=== PATIENT | male | born 1950 | race Caucasian/White ===

== ENCOUNTER → 2018-07-13 | Outpatient (CLI) | payer OTHER | LOC: BMCIMAGING 11:11 | PROVIDERS: ATTEND Neurological Surgery | DX: Z09 Encounter for follow-up examination after completed treatment for conditions other than malignant neoplasm (principal); Z98.1 Arthrodesis status; M46.92 Unspecified inflammatory spondylopathy, cervical region ==

== ENCOUNTER 2018-08-25 01:09 | Emergency (ER) | payer OTHER ==
[2018-08-25] MEDS ORDERED: LORazepam 1 MG TAB PO ONE (02:34)
--- NOTE | 2018-08-25 02:49 | EDPHY ---
H & P Stated Complaint: SHAKING ANXIETY Time Seen by Provider: 08/25/18 01:38 HPI/ROS: Chief Complaint: Shaking HPI: 67-year-old man presenting with shaking intermittently for the last week. Patient states that he returned from a 2 week trip to [facility] 10 days ago. While there he was diagnosed with urinary tract infection in was started on antibiotics. He was seen here by her allergy last week and started on VESIcare. For the last 5 days he has been having intermittent shaking periods. He has been taking Xanax for this with some relief. He was seen by Dr. Right viera yesterday. He had blood tests an EKG which were unremarkable. She started Min BuSpar p.r.n.. He took went 6:00 a.m. Yesterday afternoon in 1 again at midnight. Shaking episodes or primarily in his upper arms last anywhere from 15 min 0.5 hr. They are improved after the Ativan. He says that it has improved somewhat after the BuSpar this morning. No difficulty walking. No freezing or falls. No headache. There is some anxiety associated with this but he is not sure of if this is the cause or the result of the shaking. No nausea or vomiting. Dr. Carrion also ordered a 24 hr urine collection test which she is going to be starting this morning. ROS: 10 systems were reviewed and were negative except those elements noted in the HPI. PMH: Hypertension, BPH Social History: No smoking, no alcohol, no recreational drug use Family History: non-contributory Physical Exam: Gen: Awake, Alert, No Distress HEENT: Nose: no rhinorrhea Eyes: PERRLA, EOMI Mouth: Moist mucosa Neck: Supple, no JVD Chest: nontender, lungs clear to auscultation Heart: S1, S2 normal, no murmur Abd: Soft, non-tender, no guarding Back: no CVA tenderness, no midline tenderness Ext: no edema, non-tender Skin: no rash Neuro: CN II-XII intact, Sensation grossly intact, Strength 5/5 in bilateral upper and lower extremities - Personal History Current Tetanus/Diphtheria Vaccine: Yes Current Tetanus Diphtheria and Acellular Pertussis (TDAP): Yes Tetanus Vaccine Date: WITHIN 10 YEARS - Medical/Surgical History Hx Asthma: No Hx Chronic Respiratory Disease: No Hx Diabetes: No Hx Cardiac Disease: No Hx Renal Disease: No Hx Cirrhosis: No Hx Alcoholism: No Hx HIV/AIDS: No Hx Splenectomy or Spleen Trauma: No - Social History Smoking Status: Never smoked Constitutional: Initial Vital Signs Temperature (C) 36.4 C 08/25/18 01:29 Heart Rate 86 08/25/18 01:29 Respiratory Rate 18 08/25/18 01:29 Blood Pressure 146/101 H 08/25/18 01:29 O2 Sat (%) 100 08/25/18 01:29 O2 Delivery Mode Room Air Allergies/Adverse Reactions: No Allergies [NKA] Allergy (Verified 07/18/12 12:50) Home Medications: Medication Instructions Recorded Diazepam [Valium 5 MG (RX)] 5 mg PO DAILY PRN 07/26/12 Flaxseed Oil [Flax Seed Oil] 1,000 mg PO DAILY 07/26/12 Levothyroxine [Synthroid 112 mcg 112 mcg PO DAILY06 07/26/12 (RX)] Lovastatin 20 mg PO 07/26/12 Multivitamins [Tab-A-Mohit] 1 each PO DAILY 07/26/12 Solifenacin Succinate [Vesicare 5 5 mg PO DAILY8 07/26/12 MG (RX)] Medical Decision Making ED Course/Re-evaluation: 67-year-old male presenting with episodes of shaking for the last 5 days. They last anywhere from 15 min to 1.5 hr. He has a completely neurologic exam. He did have an episodes of shaking here in his upper extremities which did not appear voluntary. He did not have any hypertension associated with this. I have reviewed his laboratory tests ordered yesterday which are in the computer system and these appear normal. I do not think imaging is indicated at this time. Will give him some Ativan here and reassess. Otherwise plan will be for discharge and follow up with his primary care physician. No evidence of acute infectious or acute central nervous process at this time. - Data Points Medications Given: Discontinued Medications Lorazepam (Ativan) 1 mg PO EDNOW ONE Stop: 08/25/18 02:35 Last Admin: 08/25/18 02:39 Dose: 1 mg Departure - Departure Disposition: Home, Routine, Self-Care Clinical Impression: Coarse tremors Condition: Good Instructions: Tremors (ED) Additional Instructions: Follow up with primary care physician in 1-2 days for further evaluation. Return to the emergency department for persistent tremors which are not improved with medication. Fevers, new numbness, weakness, headache, fainting, or any other concerns. Referrals: Sofi Fenton MD [Primary Care Provider] - As per Instructions
[2018-08-25 03:40] VITALS: BP 119/90
== END 2018-08-25 03:38 | disposition home or self-care (01) ==
LOC: EDUNIT#
DX: R25.1 Tremor, unspecified (principal); I10 Essential (primary) hypertension; F41.9 Anxiety disorder, unspecified